=== PATIENT | female | born 1985 | race African-American/Black ===

== ENCOUNTER 2022-06-30 17:25 | Emergency (ER) | payer OTHER, SELFPAY ==
[2022-06-30 17:48] VITALS: BP 130/88; PULSE 68; RESP 18; TEMP 36.4; O2SAT 97; BMI 35.8
--- NOTE | 2022-06-30 17:55 | CRLHL7_ITS ---
For Patients: As a result of the Century Cures Act, medical imaging exams and procedure reports are released immediately into your electronic medical record. You may view this report before your referring provider. If you have questions, please contact your health care provider. INDICATION: Right upper quadrant pain COMPARISON: none TECHNIQUE: Real time heranndez scale imaging and color Doppler analysis was performed of the right upper quadrant. FINDINGS: The patient`s liver is of normal size and has mildly increased echogenicity. There is a normal appearance of the hepatic IVC and proximal abdominal aorta. There is no evidence of ascites. The gallbladder is distended and there is layering hyperechoic sludge present within the gallbladder lumen. Additionally, there is a 6 millimeter echogenic stone lodged in the gallbladder neck which is nonmobile. The gallbladder wall measures 1 mm in thickness. The common bile duct is of normal size and measures 6 mm in diameter at the level of the jason hepatis. The pancreas appears normal. There is no evidence of a stone or hydronephrosis within the right kidney. The right kidney measures 12.5 cm in length. IMPRESSION: Distended gallbladder with layering echogenic sludge and non mobile 6 millimeter gallbladder neck stone suggesting cholecystitis. Mild hepatic steatosis. Dictated by Anatoly Antonio MD @ 06/30/2022 6:42:26 PM (Electronically Signed)
--- NOTE | 2022-06-30 19:00 | ED.ABDPAIN ---
HPI - Abdominal Pain General Chief Complaint: Abdominal Pain Stated Complaint: Wants Ultrasound? Time Seen by Provider: 06/30/22 18:37 History of Present Illness HPI narrative: This patient comes from urgent care where she presented with severe right upper quadrant abdominal pain that started this morning. She has not had any fevers. She has had some vomiting. A lab is acquired at urgent care showing a white blood cell count at 11. She arrives here with pain in her right upper quadrant that his improved significantly but is still present. Related Data Previous Rx's Medication Instructions Recorded hydrocodone 5 mg-acetaminophen 325 1 tab PO Q4-6H PRN pain #20 tabs 06/30/22 mg tablet ondansetron HCl 4 mg tablet 4 mg PO Q6H #20 tabs 06/30/22 Allergies Allergy/AdvReac Type Severity Reaction Status Date / Time No Known Drug Allergies Allergy Verified 06/30/22 15:42 Review of Systems Status of ROS Reports: 10 or more systems reviewed and unremarkable except as noted in History and below Narrative Constitutional: No fevers, no weight gain or loss. Eyes: No discharge. No vision changes. HENT: No congestion, no sore throat, no ear pain. Cardiovascular: No chest pain, no palpitations. Respiratory: No shortness of breath, no wheezes, no cough. Gastrointestinal: Right upper quadrant abdominal pain. Nausea with vomiting. Genitourinary: No dysuria, no hematuria. Musculoskeletal: Normal range of motion. Skin: No rashes, no pruritis. Neurological: No dizziness, weakness, sensory change, speech change. Endo/Heme/Allergies: No bruising or bleeding. No polydipsia. Pysch: no suicidality, no anxiety, no insomnia. All other systems reviewed and are negative. Exam Narrative: Exam Narrative: Constitutional: Well-developed, well-nourished, no acute distress. HEENT: Normocephalic, atraumatic. Neck: Normal range of motion. Nontender. Supple. Heart: Regular. No murmurs. Normal rate. Intact distal pulses. Lungs: Clear to auscultation. No chest discomfort. No wheezes, rhonchi, or rales. Abdomen: Normal bowel sounds. Distinct tenderness in the right upper quadrant. Genitalia: Deferred. Back: No midline tenderness. Normal range of motion. Extremities: Normal range of motion. No injury. Skin: Intact. No rash. Warm. No erythema or pallor. Neurologic: No altered sensation. No weakness. Alert and oriented. Psychiatric: No suicidality. No anxiety or depression. No insomnia. Nursing notes and vitals signs are reviewed. Const: Vital Signs, click to edit/add: Vital Signs - 24 hr 06/30/22 17:48 Temperature 97.5 F L Pulse Rate [Right Pulse Oximeter] 68 Respiratory Rate 18 Blood Pressure [Ri ght Upper Arm] 130/88 Pulse Oximetry 97 Oxygen Delivery Me thod Room Air Course Vital Signs Vital signs: Initial Vital Signs Temperature 97.5 F L 06/30/22 17:48 Temperature Source Temporal Artery Scan 06/30/22 17:48 Pulse Rate 68 06/30/22 17:48 Respiratory Rate 18 06/30/22 17:48 Blood Pressure 130/88 06/30/22 17:48 Blood Pressure Mean 102 06/30/22 17:48 Blood Pressure Position Sitting 06/30/22 17:48 Pulse Oximetry 97 06/30/22 17:48 Oxygen Delivery Method Room Air 06/30/22 17:48 Vital Signs Temperature 97.5 F L 06/30/22 17:48 Pulse Rate 68 06/30/22 17:48 Respiratory Rate 18 06/30/22 17:48 Blood Pressure 130/88 06/30/22 17:48 Pulse Oximetry 97 06/30/22 17:48 Oxygen Delivery Method Room Air 06/30/22 17:48 Temperature 97.5 F L 06/30/22 17:48 Pulse Rate 68 06/30/22 17:48 Respiratory Rate 18 06/30/22 17:48 Blood Pressure 130/88 06/30/22 17:48 Pulse Oximetry 97 06/30/22 17:48 Oxygen Delivery Method Room Air 06/30/22 17:48 MDM - Abdominal Pain MDM Narrative Medical decision making narrative: Ultrasound of the right upper quadrant shows evidence of a stone in the neck of the gallbladder with some sludging of the bile in the gallbladder. The common bile duct is appearing normal. The patient is not showing sign of obstruction and her pain is improved. She did receive an intramuscular injection of Dilaudid 1 mg. I did provide prescriptions for [place] and Zofran. I spoke with the surgeon on-call, Dr. Amor, who stated that the patient could be seen in clinic next week for ongoing management of this condition. The patient understands that if pain is worse or if she develops fever or other symptoms she should return to the emergency department. Imaging Data US - abdomen: Radiologist's impression: Distended gallbladder with layering echogenic sludge and non mobile 6 millimeter gallbladder neck stone suggesting cholecystitis. Discharge Plan Discharge Clinical Impression: Cholelithiasis Patient Disposition: Home w/ Parent or Adult Condition: Stable Additional Instructions: Take medication as needed and directed. Follow up with surgery Clinic. Call for appointment by calling [phone]. Return if worsening symptoms happen. Prescriptions: New hydrocodone-acetaminophen 5-325 mg tablet 1 tab PO Q4-6H PRN (Reason: pain) Qty: 20 0RF ondansetron HCl 4 mg tablet 4 mg PO Q6H Qty: 20 0RF Follow Up/Referrals: Provider,Not a Local [Primary Care Provider] - Stand Alone Forms: [employer] Info Instructions
[2022-06-30] MEDS: HYDROmorphone 0.5 mg/0.5 ml inj 1 MG IM (19:43)
[2022-06-30 19:54] VITALS: BP 135/77; PULSE 78; RESP 18; O2SAT 96
--- NOTE | 2022-06-30 19:55 | ED.NURSE ---
Patient instructed to follow up with general surgery. Patient states she is not going to call and she does not want surgery. Patient educated on the importance of following up.
== END 2022-06-30 19:56 | disposition home or self-care (01) ==
PROVIDERS: Emergency Provider Emergency Medicine Emergency Medical Services
DX: K80.10 Calculus of gallbladder with chronic cholecystitis without obstruction (principal)
CPT/HCPCS: 76705; 96372; 99283; 99284; J1170